=== PATIENT | female | born 1990 | race Caucasian/White ===

== ENCOUNTER 2019-11-23 14:36 | Emergency (ER) | payer OTHER ==
[~2019-11-23] VITALS: Ht 162.6 cm; Wt 68.0 kg
[~2019-11-23 14:36] MED LIST: ACETAMINOPHEN-1 EAC1 PO; AMOXICILLIN 50500 MG PO; AMOXICILLIN500 M1 PO; IBUPROFEN 600600 M1 PO; IBUPROFEN 800800 M1 PO; PENICILLIN V P500 MG PO; TRINATE TABLET1 TAB PO
[2019-11-23 14:47] VITALS: BP 147/106
[2019-11-23] MEDS ORDERED: TYLENOL WITH CO1 TA1 PO (15:40)
[2019-11-23] MEDS ORDERED: IBU800 MG PO (15:40)
[2019-11-23] MEDS ORDERED: AMOXICILLIN 50500 MG PO (15:40)
== END 2019-11-23 15:45 | disposition home or self-care (01) ==
LOC: M.ERS 14:36
DX: K03.81 Cracked tooth (principal); K08.89 Other specified disorders of teeth and supporting structures; F17.210 Nicotine dependence, cigarettes, uncomplicated; Z86.14 Personal history of Methicillin resistant Staphylococcus aureus infection

== ENCOUNTER 2020-12-17 21:56 | Emergency (ER) | payer OTHER ==
[~2020-12-17] VITALS: Ht 172.7 cm; Wt 79.4 kg
[~2020-12-17 21:56] MED LIST changes: +IBU800 MG PO; +TYLENOL WITH CO1 TA1 PO
[2020-12-18 00:15] VITALS: BP 122/84
[2020-12-19] MEDS ORDERED: DOXYCYCLINE 10100 MG PO (19:30)
[2020-12-19] MEDS ORDERED: CENTANY30 GM TOP (19:30)
== END 2020-12-18 00:15 | disposition home or self-care (01) ==
LOC: M.ERS 21:56
DX: L02.511 Cutaneous abscess of right hand (principal); F17.210 Nicotine dependence, cigarettes, uncomplicated; Z86.14 Personal history of Methicillin resistant Staphylococcus aureus infection

== ENCOUNTER 2020-12-19 19:07 | Emergency (ER) | payer OTHER ==
[~2020-12-19] VITALS: Ht 170.2 cm; Wt 78.5 kg
[2020-12-19] MEDS ORDERED: DOXYCYCLINE 10100 MG PO (19:30)
[2020-12-19] MEDS ORDERED: CENTANY30 GM TOP (19:30)
[2020-12-19 19:35] VITALS: BP 134/106
== END 2020-12-19 19:39 | disposition home or self-care (01) ==
LOC: M.ERS 19:07
DX: Z48.01 Encounter for change or removal of surgical wound dressing (principal); Z86.14 Personal history of Methicillin resistant Staphylococcus aureus infection